=== PATIENT | female | born 1995 | race African-American/Black ===

== ENCOUNTER 2018-11-24 12:31 | Emergency (ER) | payer OTHER ==
[2018-11-24] MEDS: LIDOCAINE 1%/EPI (1:100,000) (MDV) 20 ML INJ (14:42)
[2018-11-24] MEDS: LIDOCAINE 1%/EPI (MDV) 50 ML INJ INJ (14:42)
== END 2018-11-24 15:43 | disposition home or self-care (01) ==
LOC: FTE 12:31
DX: S61.412A Laceration without foreign body of left hand, initial encounter (principal); W25.XXXA Contact with sharp glass, initial encounter; Y92.9 Unspecified place or not applicable
CPT/HCPCS: 12001; 99283-25